=== PATIENT | male | born 1995 | race Hispanic/Latino ===

== ENCOUNTER 2016-12-03 23:26 | Emergency (ER) | payer OTHER ==
[~2016-12-03] VITALS: Ht 175.3 cm; Wt 90.9 kg
[2016-12-03 23:36] VITALS: BP 130/88; PULSE 79; RESP 16; O2SAT 99
--- NOTE | 2016-12-04 01:19 | ED.REPORT ---
HPI-General Illness Date of Service Dec 04, 2016 ED Provider: Elias Washington MD Pt is an otherwise healthy 21 year old male who presents to the ED complaining of yellow skin discoloration to his face onset prior to arrival. The pt reports that his body "felt weird" with diffuse paresthesia, causing him to wake up and notice the skin discoloration on his face. Upon arrival to the ED, the pt reports that his symptoms are resolved. He denies nausea, vomiting, diarrhea, fever, dysuria, and abdominal pain. The pt reports that he recently hit his head on a nail, but it did not puncture his skin. Nursing Notes Stated Complaint: WOKE UP FEELING NOT RIGHT/SKIN YELLOW Chief Complaint: General Complaint Nursing Notes Reviewed: Yes Allergies: Coded Allergies: No Known Allergies (Verified Allergy, Unknown, 12/03/16) General Time Seen by MD: 01:15 Chief Complaint Other (Skin discoloration, yellow) Hx Obtained From: Patient Arrived By: Walk-in Sudden in Onset?: Yes Onset Occurred: Just prior to arrival Symptom Duration: Duration unknown Severity: Current: No pain currently Severity: Maximum: No pain Recent Healthcare: No recent doctor visit, No recent hospitalization Similar Sx Previous: No Past Medical History Past Medical History None reported - healthy Past Surgical History Denies Smoking History Unknown if Ever Smoker Social History Alcohol Use: "Social" Drug Use: Denies drug use Ambulatory Status Independent Review of Systems + Diffuse paresthesia, resolved + Skin discoloration, face (yellow), resolved Full Review of Systems Constitutional: Denies: Fever GI: Denies: Abdominal pain, Diarrhea, Nausea, Vomiting Male: Denies Dysuria Complete sys rev & neg: except as marked. Physical Exam Vital Signs Vital Signs Date Time Temp Pulse Resp B/P Pulse Ox O2 Delivery O2 Flow Rate FiO2 12/03/16 23:36 36.6 79 16 130/88 99 Room Air Initial VS: Reviewed Head / Eyes: Atraumatic, Normocephalic Neck: Supple, Full range of motion Respiratory: Breath sounds normal, Clear to auscultation, No respiratory distress Cardiovascular: Regular rate & rhythm, Heart sounds normal, Intact distal pulses Abdomen / GI: Soft, Non-tender Extremities: Vascular intact, Neuro intact Skin: Warm, Dry, No cyanosis Neurologic: Alert, Oriented, Nonfocal Psychiatric: Mood/affect normal, Behavior normal General/Constitutional: Awake, Alert His skin is not yellow Interpretation & Diagnostics Lab Results Interpretation Result Diagram: 12/04/16 0135 12/04/16 0135 Test 12/04/16 01:35 White Blood Count 9.2th/mm3 (3.8-10.1) Red Blood Count 4.70mil/mm3 (4.40-5.80) Hemoglobin 14.6g/dL (13.8-17.2) Hematocrit 41.4% (41.0-50.0) Mean Corpuscular Volume 88.1fL (81-100) Mean Corpuscular Hemoglobin 31.1pg (27.0-35.0) Mean Corpuscular Hemoglobin Concent 35.3% (32.0-37.0) Red Cell Distribution Width 12.8% (12.3-15.4) Platelet Count 309bil/L (150-400) Neutrophils (%) (Auto) 55.9% (40-74) Lymphocytes (%) (Auto) 32.5% (14-46) Monocytes (%) (Auto) 9.5% (4-12) Eosinophils (%) (Auto) 1.6% (0-5) Basophils (%) (Auto) 0.4% (0-3) Prothrombin Time 9.9sec (8.1-12.5) Prothromb Time International Ratio 0.93ratio Sodium Level 139mEq/L (134-144) Potassium Level 4.2mEq/L (3.5-5.2) Chloride Level 103mEq/L (97-108) Carbon Dioxide Level 23mmol/L (18-29) Blood Urea Nitrogen 16mg/dL (6-20) Creatinine 0.64mg/dL (0.76-1.27) Estimat Glomerular Filtration Rate 166mL/min (>59) Glucose Level 104mg/dL (60-99) Calcium Level 8.9mg/dL (8.5-10.1) Magnesium Level 2.0mg/dL (1.6-2.6) Total Bilirubin 0.3mg/dL (0.0-1.2) Aspartate Amino Transf (AST/SGOT) 26U/L (0-50) Alanine Aminotransferase (ALT/SGPT) 33U/L (0-44) Alkaline Phosphatase 55U/L (25-150) Total Protein 6.9g/dL (6.4-8.4) Albumin 4.0g/dL (3.4-5.0) Lipase 59U/L (13-60) Hold Dominguez Top Tube Received (Received) Re-Eval/Medical Decision Med Decision/Clinical Course 21-year-old who awoke feeling weird and then became progressively more anxious. He states that he thought his skin was yellow. Labs are normal and he is totally asymptomatic at this time. I do not see any evidence of serious illness at this time. Suspect anxiety and worried well. Source of Hx: Old records Time of Eval: 02:04 Re-Evaluation/Progress Note: Pt rechecked. Infromed pt of reassuring lab results. Informed pt of plan for discharge. Pt understands and agrees with plan for discharge. F/U instructions and RTER warnings given. All questions addressed. Counseled Regarding: Diagnosis, Lab results, Need for follow-up, When/why to return to ED Discharge & Departure Primary Impression: Anxiety Disposition: Home Discharge Condition All VS Reviewed: Yes Condition: Stable Additional Instructions: The cause of your symptoms is not certain, but does not appear to be serious. I suspect that your symptoms are at least partly due to some anxiety. Your labs are all normal. Recheck with your primary provider if you have recurrent symptoms. Referrals: Roxanna Valerio MD (PCP) Scribe Attestation Portions of this note were transcribed by Kayleigh Manning. I, Dr. Washington personally performed the history, physical exam and medical decision-making; I reviewed and confirmed the accuracy of the information in the transcribed note. Signed by: Alexsander Mijares, 12/04/16. copies to: Roxanna Valerio MD, Howard L MD Dec 04, 2016 01:19 Kayleigh Molina Dec 04, 2016 01:50
[2016-12-04 01:41] LABS: BASOPHILS % (AUTO) 0.4 % (0-3); EOSINOPHILS % (AUTO) 1.6 % (0-5); MONOCYTES % (AUTO) 9.5 % (4-12); Mean Corpuscular Hemoglobin 31.1 pg (27.0-35.0); Mean Corpuscular Volume 88.1 fL (81-100); NEUTROPHILS % (AUTO) 55.9 % (40-74); Platelet Count 309 bil/L (150-400)
[2016-12-04 01:55] LABS: INR 0.93 ratio
== END 2016-12-04 02:18 | disposition home or self-care (01) ==
LOC: SED 23:26
DX: F41.9 Anxiety disorder, unspecified (principal)